=== PATIENT | male | born 1960 | race Caucasian/White ===

== ENCOUNTER 2017-04-29 06:13 | Day surgery (SDC) | payer OTHER ==
[~2017-04-29] VITALS: Ht 167.6 cm; Wt 89.1 kg
[~2017-04-29 06:13] MED LIST: ATOR10TA23 BU
[2017-04-29 06:46] VITALS: Ht 167.6 cm; Wt 89.1 kg
[2017-04-29] MEDS ORDERED: ESCI10TA PO (06:55)
[2017-04-29] MEDS ORDERED: FENO145T25 PO (06:55)
[2017-04-29] MEDS ORDERED: OMEP40CA6 PO (06:55)
[2017-04-29] MEDS ORDERED: ALPR0.5T PO (06:55)
[2017-04-29 07:16] VITALS: BP 113/84; PULSE 64; RESP 18
[2017-04-29] MEDS ORDERED: MIDAZOLAM 1 MG/ML 2 ML INJ ONE (07:19)
[2017-04-29] MEDS ORDERED: PROPOFOL 40 ML ONE (07:19)
[2017-04-29] MEDS ORDERED: LIDOCAINE 2% (SDV) 5 ML INJ ONE (07:19)
[2017-04-29 09:00] VITALS: BP 115/78; PULSE 66; RESP 20
--- NOTE | 2017-05-02 15:40 | GILP ---
DATE OF PROCEDURE: 04/29/2018 PROCEDURE PERFORMED: Esophagogastroduodenoscopy and biopsy. Colonoscopy. SURGEON: Devin Montero MD PREOPERATIVE DIAGNOSES: Positive occult blood in the stool. Chronic heartburn. POSTOPERATIVE DIAGNOSES: Gastroesophageal reflux disease. Gastritis with erosions. Gastric mucosa biopsies were taken for Helicobacter pylori test. Colonoscopy all the way to the cecum. Internal hemorrhoids. No colon neoplasm was identified. INDICATION: The patient is a 56-year-old male patient, who was noted to have positive occult blood in the stool. He also had chronic heartburn not completely responding to therapy. The patient was scheduled for endoscopy and colonoscopy for further evaluation. The procedures and possible complications were well explained to the patient. The patient understood and consented to the procedure. DESCRIPTION OF PROCEDURE: Under the influence of anesthesia, the gastroscope was carefully introduced into the esophagus under direct vision. It was advanced to the stomach, into the pylorus, into the duodenal bulb, and descending duodenum. FINDINGS: Esophagus: The patient had gastroesophageal reflux disease. Stomach: The patient had gastritis with erosions. Gastric mucosal biopsies were taken for Helicobacter pylori test. Duodenum: Normal. The colonoscope was carefully introduced in the rectum and then under direct vision it was advanced all the way to the cecum. FINDINGS: The patient had internal hemorrhoids. No colon neoplasm was identified. The patient tolerated the procedure very well. There was no complication from the procedure. At the end of procedure, he was awake with stable vital signs and he was discharged to the care of his family. IMPRESSION: Gastroesophageal reflux disease. Gastritis with erosions. Gastric mucosal biopsies were taken for Helicobacter pylori test. Colonoscopy all the way to the cecum. Internal hemorrhoids. No colon neoplasm was identified. PLAN: Continue omeprazole. Add Zantac 300 mg p.o. nightly. Await Helicobacter pylori test report. Dictated By: MD GEORGETTE Machuca/consuelo/james /Document#: [id number]
== END 2017-04-29 09:21 | disposition home or self-care (01) ==
LOC: GIL 06:13
PROVIDERS: ATTEND Internal Medicine Gastroenterology
DX: K21.9 Gastro-esophageal reflux disease without esophagitis (principal); K29.70 Gastritis, unspecified, without bleeding; K64.8 Other hemorrhoids
CPT/HCPCS: 43239; 45378; 87081; J2250